=== PATIENT | male | born 1950 | race Caucasian/White ===

== ENCOUNTER 2022-06-09 18:54 | Emergency (ER) | payer BC, MEDICARE ==
[~2022-06-09] VITALS: Ht 162.6 cm; Wt 73.5 kg
--- NOTE | 2022-06-09 19:10 | NUR ---
WITH PATIENT ON SHAKIR FOR MSE.
[2022-06-09 19:15] VITALS: BP_SYST 153
--- NOTE | 2022-06-09 19:41 | NUR ---
COVID SWAB COLLECTED AND SENT TO LAB.
--- NOTE | 2022-06-09 19:50 | NUR ---
[facility] NURSE REPORTED BLOOD SUGAR ON ARRIVAL IS 305.
--- NOTE | 2022-06-09 19:50 | NUR ---
Note nguyen in EDM - 06/09/22 at 2152 by [email or web address] PT BIBA FROM HOME WITH C/O OF MECHANICAL FALL YESTERDAY AND ALOC/ PT FAMILY STATES, PT WAS SLOW TO RESPOND AND CONFUSED. PT ARRIVED A&O X3, FOLLOWING COMMANDS, AND VSS. PT GLUCOSE 305, MADE AWARE. 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 SAFETY PRECAUTIONS IN PLACE AND CONNECTED TO MONITOR.
--- NOTE | 2022-06-09 19:50 | NUR ---
PT BIBA FROM HOME WITH C/O OF MECHANICAL FALL YESTERDAY AND ALOC/ PT FAMILY STATES, PT WAS SLOW TO RESPOND AND CONFUSED. PT ARRIVED A&O X2, FOLLOWING COMMANDS, AND VSS. PT GLUCOSE 305, MADE AWARE. 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 SAFETY PRECAUTIONS IN PLACE AND CONNECTED TO MONITOR.
[2022-06-09 19:52] LABS: BASOPHILS % (AUTO) 0.3 % (0.0-2.0); EOSINOPHILS % (AUTO) 0.1 % (0.0-4.0); HEMATOCRIT 41.8 % (36-54); HEMOGLOBIN 14.7 g/dL (14.0-18.0); LYMPHOCYTES # (AUTO) 1.1 K/uL (1.0-5.5); LYMPHOCYTES % (AUTO) 11.9 % (20.5-51.5); MEAN CORPUSCULAR HEMOGLOBIN 32 pg (27-31); MEAN CORPUSCULAR HGB CONC 35 % (32-36); MEAN CORPUSCULAR VOLUME 92 fL (79.0-98.0); MONOCYTES # (AUTO) 0.8 K/uL (0.0-1.0); MONOCYTES % (AUTO) 8.8 % (1.7-9.3); NEUTROPHILS # (AUTO) 7.3 K/uL (1.8-7.7); NEUTROPHILS % (AUTO) 78.9 % (40.0-70.0); PLATELET COUNT (AUTO) 160 K/uL (130-430); RED BLOOD CELL COUNT(AUTO) 4.54 MIL/uL (4.2-6.2); RED CELL DISTRIBUTION WIDTH 13.6 % (9.0-15.0); WHITE BLOOD COUNT (AUTO) 9.3 K/uL (4.8-10.8)
[2022-06-09 20:30] LABS: ANION GAP 7 (5-15); CALCIUM 9.6 mg/dL (8.4-11.0); CHLORIDE 100 mmol/L (98-107); CREATININE 1.32 mg/dL (0.55-1.30); GLUCOSE 276 mg/dL (70-99); UREA NITROGEN, BLOOD 16 mg/dL (8-21)
[2022-06-09 20:33] LABS: PROTHROMBIN TIME 9.9 SECS (9.5-12.5)
[2022-06-09 20:39] LABS: ALANINE AMINOTRANSFERASE 31 U/L (12-78); ALBUMIN 3.8 g/dL (3.4-4.8); ASPARTATE AMINOTRANSFERASE 23 U/L (10-37); TOTAL BILIRUBIN 0.5 mg/dL (0.0-1.0)
[2022-06-09 21:02] LABS: CKMB RELATIVE INDEX 0.3 (0.0-2.9); CREATINE KINASE MB 1.8 ng/mL (0-3.6)
--- NOTE | 2022-06-09 21:30 | NUR ---
CHARGE NURSE AT BEDSIDE TO ATTEMPT TO GAIN IV ACCESS.
--- NOTE | 2022-06-09 21:50 | NUR ---
IV ACCESS FINALLY ESTABLISHED. RADIOLIOGY CALLED FOR CT.
[2022-06-09] MEDS ORDERED: iohexoL 350 mgI/mL, 100 ML INFUS..BTL IV ONE (21:53)
--- NOTE | 2022-06-09 22:06 | NUR ---
PT BACK FROM RADIOLOGY VIA [facility] ACCOMPANIED BY STAFF.
--- NOTE | 2022-06-09 22:29 | NUR ---
REASSESED PT AFTER RADIOLOGY, PT STILL A&O X2 AND FOLLOWING COMMANDS. VSS. SAFETY PRECAUTIONS IN PLACE AND CONNECTED TO MONITOR.
[2022-06-09 23:20] LABS: ACETONE, SERUM NEGATIVE (NEGATIVE)
--- NOTE | 2022-06-10 01:00 | NUR ---
# 18 FR In and Out catheter with use of sterile technique. Immediate return of 200 ml CLEAR YELLOW urine noted. Urine sample collected and sent to lab. Pt tolerated procedure WELL. Patient unable to toilet self.
[2022-06-10 01:13] LABS: BILIRUBIN,URINE NEGATIVE (NEGATIVE); COLOR,URINE YELLOW (YELLOW); GLUCOSE,URINE 2+ (NEGATIVE); KETONES,URINE TRACE (NEGATIVE); LEUKOCYTE ESTERASE ,URINE NEGATIVE (NEGATIVE); NITRITE, URINE NEGATIVE (NEGATIVE); PROTEIN URINE NEGATIVE (NEGATIVE); UROBILINOGEN,URINE 0.2 (0.2-1.0)
[2022-06-10 01:20] LABS: BLOOD, URINE TRACE (NEGATIVE)
[2022-06-10 01:21] LABS: CLARITY/URINE HAZY (CLEAR)
[2022-06-10 01:25] LABS: BACTERIA,URINE None Seen /HPF (None Seen); RBC,URINE 0-3 /HPF (0-3); WBC,URINE 0-3 /HPF (0-3)
--- NOTE | 2022-06-10 02:51 | NUR ---
PT RESTING IN BED, EYES CLOSED. EVEN AND UNLABORED RESP, NAD. SAFETY PRECAUTIONS IN PLACE.
--- NOTE | 2022-06-10 04:23 | NUR ---
PT RESTING IN BED WITH EYES CLOSED. EVEN AND UNLABORED RESPS NOTED, NAD. VSS. SAFETY PRECAUTIONS IN PLACE AND CONNECTED TO MONITOR.
--- NOTE | 2022-06-10 06:13 | NUR ---
PT A&O X4 AND FOLLOWING COMMANDS. PT QUICK TO RESPOND. PT STATES NOT REMEMBER BEING CONFUSED. MD MADE AWARE. VSS. SAFETY PRECAUTIONS IN PLACE.
--- NOTE | 2022-06-10 07:00 | NUR ---
ASSUMED PATIENT BIN BED AAOX4 NO ACUTE DISTRESS NOTED WILL CONTINUE TO MONIOTOR.
--- NOTE | 2022-06-10 07:24 | NUR ---
REPORT GIVEN TO NOEMY GAYTAN TO ASSUME CARE.
--- NOTE | 2022-06-10 07:27 | NUR ---
TRANSFER INFO [facility] [phone] [facility] ETA 0815 SPOKE TO VIRGEN
--- NOTE | 2022-06-10 07:30 | NUR ---
ASSUMED PATIENT CARE AAOX4 SPEECH CLEAR AND COHERENT, MOVE ALL EXTREMITIES, NIH-0, BEDSIDE SWOLLOWING TEST PASS.
[2022-06-10 08:14] VITALS: BP_SYST 154
--- NOTE | 2022-06-10 08:29 | NUR ---
STATUS UPDATE GIVEN TO RUCHI RODRIGUEZ VIA PHONE
--- NOTE | 2022-06-10 08:33 | NUR ---
REPORT GIVEN TO ALONSO GAYTAN
--- NOTE | 2022-06-10 09:55 | NUR ---
ETA 1030 SPOKE TO MONROE
--- NOTE | 2022-06-10 09:57 | NUR ---
patient remains in bed in [facility], awaiting for transportation.
--- NOTE | 2022-06-10 10:58 | NUR ---
Patient to be transferred to [facility]. Is being transferred due to higher level of care. Receiving facility has accepting physician and available space. ER physician has signed transfer form. Patient or responsible republican has agreed to transfer and signed form. Patient belongings inventoried and will be sent with patient. Copy of nursing notes, lab reports, EKG, Physicians Orders and X-rays to be sent with patient. Report called to ALONSO GAYTAN at receiving facility. Receiving physician is XO. [id number] service has been called for transfer. ETA is 1100.
== END 2022-06-10 10:58 | disposition short-term general hospital (02) ==
LOC: SED 18:54
DX: R41.82 Altered mental status, unspecified (principal); E11.9 Type 2 diabetes mellitus without complications; I10 Essential (primary) hypertension; Z79.899 Other long term (current) drug therapy; Z20.822 Contact with and (suspected) exposure to COVID-19
CPT/HCPCS: 99285; 70450; 71045; 87426; 80053; 81000; 82009; 82550; 82553; 82962; 83880; 85025; 85610; 85730; 84484; 36415; 93005; 70496; 70498; 83605; 76376; G0482; Q9967